=== PATIENT | male | born 1985 | race African-American/Black ===

== ENCOUNTER 2018-05-28 17:43 | Emergency (ER) | payer SELFPAY ==
[2018-05-28 18:19] VITALS: BP 142/88
--- NOTE | 2018-05-28 18:31 | UC ---
Throat Pain/Nasal Miguel HPI - HPI Summary HPI Summary: The patient is a 32-year-old male with a two-week history of nasal congestion postnasal drip and facial pressure as well as pain. Things have dramatically worsened in the past 48 hours. He has had fever chills and his nasal discharge has become brownish green. His upper teeth and gums are sensitive. Both his ears hurt and are popping. He has no chest pain or shortness of breath. He denies any nausea vomiting or diarrhea. - History of Current Complaint Chief Complaint: UCRespiratory Stated Complaint: RN,HOT/COLD CHILLS, HEADACHE Hx Obtained From: Patient Onset/Duration: Gradual Onset, Lasting Weeks Severity: Moderate Pain Intensity: 5 Pain Scale Used: 0-10 Numeric Cough: None Associated Signs & Symptoms: Positive: Sinus Discomfort, Nasal Discharge, Fever - Epiglottits Risk Factors Epiglottis Risk Factors: Negative - Allergies/Home Medications Allergies/Adverse Reactions: Allergies Allergy/AdvReac Type Severity Reaction Status Date / Time eczema Allergy Rash Uncoded 05/28/18 18:19 Home Medications: Home Medications D-Methorphan/PE/Acetaminophen [Vicks Dayquil Cold & Flu] 1 cap PO ONCE PRN 05/28 [History Confirmed 05/28/18] Phenylephrine HCl [Sudafed PE] 10 mg PO BID PRN 05/28/18 [History Confirmed 07/15] PMH/Surg Hx/FS Hx/Imm Hx Previously Healthy: Yes - Surgical History Surgical History: None - Family History Known Family History: Positive: Hypertension, Diabetes Negative: Cardiac Disease - Social History Alcohol Use: Occasionally Substance Use Type: Marijuana Substance Use Comment - Amount & Last Used: yesterday Smoking Status (MU): Heavy Every Day Tobacco Smoker Review of Systems All Other Systems Reviewed And Are Negative: Yes Constitutional: Positive: Fever, Chills, Fatigue Skin: Positive: Negative Eyes: Positive: Negative ENT: Positive: Dental Pain, Sore Throat, Ear Ache, Nasal Discharge, Sinus Congestion, Sinus Pain/Tenderness Respiratory: Positive: Cough Cardiovascular: Positive: Negative Gastrointestinal: Positive: Negative Genitourinary: Positive: Negative Motor: Positive: Negative Neurovascular: Positive: Negative Musculoskeletal: Positive: Negative Neurological: Positive: Headache Psychological: Positive: Negative Physical Exam Triage Information Reviewed: Yes Appearance: Well-Appearing, No Pain Distress, Well-Nourished Vital Signs: Initial Vital Signs Temp 101 F 05/28/18 18:08 Pulse 90 05/28/18 18:08 Resp 18 05/28/18 18:08 BP 142/88 05/28/18 18:08 Pulse Ox 98 05/28/18 18:08 Vital Signs Reviewed: Yes Eyes: Positive: Conjunctiva Clear ENT: Positive: Hearing grossly normal, Pharyngeal erythema, Nasal congestion, Nasal drainage, TM bulging, Sinus tenderness, Uvula midline. Negative: Trismus , Muffled voice, Hoarse voice, Dental tenderness Neck: Positive: Supple, Nontender, No Lymphadenopathy Respiratory: Positive: Lungs clear, Normal breath sounds, No respiratory distress, No accessory muscle use Cardiovascular: Positive: RRR, No Murmur Musculoskeletal: Positive: ROM Intact, No Edema Neurological: Positive: Alert Psychological Exam: Normal Skin Exam: Normal Throat Pain/Nasal Course/Dx - Differential Dx/Diagnosis Provider Diagnosis: Acute sinusitis Discharge - Sign-Out/Discharge Documenting (check all that apply): Patient Departure All imaging exams completed and their final reports reviewed: No Studies - Discharge Plan Condition: Stable Disposition: HOME Prescriptions: Amoxicillin PO (*) [Amoxicillin 875 MG (*)] 875 mg PO BID #20 tab Patient Education Materials: Sinusitis (ED), Warm Compress or Soak (ED) Forms: *Work Release Referrals: No Primary Care Phys,NOPCP [Primary Care Provider] - Additional Instructions: SALINE NASAL SPRAY 2 sprays each nostril two times daily AFRIN nasal spray 2 sprays each nostril 3x day for 3 days only see list for local MDs - Billing Disposition and Condition Condition: STABLE Disposition: Home
== END 2018-05-28 18:39 | disposition home or self-care (01) ==
LOC: UCCORT 17:43
DX: J01.90 Acute sinusitis, unspecified (principal); F17.210 Nicotine dependence, cigarettes, uncomplicated
CPT/HCPCS: 99202; G0463

== ENCOUNTER 2019-04-29 09:11 | Emergency (ER) | payer MEDICAID, OTHER ==
[2019-04-29 09:27] VITALS: BP 134/79
--- NOTE | 2019-04-29 09:36 | UC ---
Back Pain HPI - HPI Summary HPI Summary: 33-year-old female presents with complaints of low back pain. States yesterday he was dancing and twisted during a dance move and had a sudden onset of low back pain which progressively worsened overnight. States pain worsens with any type of moving especially bending. No alleviating factors. Has not taken any [id number] pain medication. Denies fever, chills, urinary symptoms, weakness, numbness, tingling of the lower extremities, loss of bowel or bladder control. - History of Current Complaint Chief Complaint: UCBackPain Stated Complaint: LOWER BACK PAIN Time Seen by Provider: 04/29/19 09:30 Hx Obtained From: Patient Pain Intensity: 5 - Allergies/Home Medications Allergies/Adverse Reactions: Allergies Allergy/AdvReac Type Severity Reaction Status Date / Time eczema Allergy Rash Uncoded 04/29/19 09:27 PMH/Surg Hx/FS Hx/Imm Hx Previously Healthy: Yes - Denies significant PMH - Surgical History Surgical History: None - Family History Known Family History: Positive: Hypertension, Diabetes Negative: Cardiac Disease - Social History Occupation: Employed Full-time Lives: With Family Alcohol Use: Rare Substance Use Type: Marijuana Substance Use Comment - Amount & Last Used: 04/28/19 Smoking Status (MU): Light Every Day Tobacco Smoker Review of Systems All Other Systems Reviewed And Are Negative: Yes Constitutional: Negative: Fever, Chills Skin: Negative: Rash Respiratory: Positive: Negative Cardiovascular: Positive: Negative Gastrointestinal: Positive: Negative Genitourinary: Positive: Negative Musculoskeletal: Positive: Other: - See HPI Neurological: Negative: Weakness, Paresthesia, Numbness Is Patient Immunocompromised?: No Physical Exam - Summary Physical Exam Summary: GENERAL APPEARANCE: Well developed, well nourished, alert and cooperative, and appears to be in no acute distress. CARDIAC: Normal S1 and S2. No S3, S4 or murmurs. Rhythm is regular. There is no peripheral edema, cyanosis or pallor. Extremities are warm and well perfused. Capillary refill is less than 2 seconds. Peripheral pulses intact. LUNGS: Clear to auscultation without rales, rhonchi, wheezing or diminished breath sounds. ABDOMEN: Positive bowel sounds. Soft, nondistended, nontender. No guarding or rebound. No masses or hepatosplenomegally. MUSKULOSKELETAL: ROM intact to all extremities. No joint erythema or tenderness. Normal muscular development. Normal gait. BACK: Examination of the spine reveals no midline spinal deformity or tenderness. Mild bilateral paraspinous soft tissue tenderness of the lumbar spine with spasm. SKIN: Skin normal color, texture and turgor with no lesions or eruptions. Triage Information Reviewed: Yes Vital Signs: Initial Vital Signs Temp 98.6 F 04/29/19 09:22 Pulse 76 04/29/19 09:22 Resp 18 04/29/19 09:22 BP 134/79 04/29/19 09:22 Pulse Ox 100 04/29/19 09:22 Vital Signs Reviewed: Yes Back Pain Course/Dx - Course Course Of Treatment: 33-year-old female presents with complaints of low back pain. States yesterday he was dancing and twisted during a dance move and had a sudden onset of low back pain which progressively worsened overnight. States pain worsens with any type of moving especially bending. No alleviating factors. Has not taken any [id number] pain medication. Denies fever, chills, urinary symptoms, weakness, numbness, tingling of the lower extremities, loss of bowel or bladder control. Afebrile. Vital signs stable. Patient had no midline spinal deformity or tenderness, mild bilateral paraspinous soft tissue tenderness of the lumbar spine with spasm, and otherwise unremarkable exam. Recommending conservative treatment for an acute low back pain including naproxen 500 mg twice a day for the next 3-5 days then every 12 hours as needed, cyclobenzaprine 10 mg 1 tablet every 8 hours as needed for severe pain or spasm , and heat therapy. He is to return here or follow up with his primary care provider in 3-5 days if symptoms are not improving. Anticipatory guidance and warning symptoms reviewed with the patient. Verbalizes understanding and agrees with plan of care. - Differential Dx/Diagnosis Differential Diagnosis/HQI/PQRI: Cauda Equina Syndrome, Herniated Disc, Strain Provider Diagnosis: Acute low back pain Discharge ED - Sign-Out/Discharge Documenting (check all that apply): Patient Departure All imaging exams completed and their final reports reviewed: No Studies - Discharge Plan Condition: Stable Disposition: HOME Prescriptions: Cyclobenzaprine HCl 10 mg PO Q8HR #15 tablet Naproxen [Naproxen 500 mg tab] 500 mg PO BID #30 tablet Patient Education Materials: Acute Low Back Pain (ED), Lower Back Exercises (ED ) Forms: *Work Release Referrals: No Primary Care Phys,NOPCP [Primary Care Provider] - Additional Instructions: Take naproxen 500 mg every 12 hours with food for the next 3-5 days and then may take every 12 hours as needed. Used cyclobenzaprine 10 mg 1 tablet every 8 hours as needed for severe pain or spasm. This medication will cause drowsiness so do not take and drive or operate machinery. Use a heating pad to the effected area for 15-20 minutes at least 4 times a day to help with the pain and to relax the muscles. Return here or follow-up with your primary care provider in 3-5 days if symptoms are not improving. Seek immediate medical attention in the emergency room if you develop a fever greater than 100.5 F, has severe pain that is not managed with your pain medications, develop numbness, tingling, or weakness in her lower extremities, your family, you lose control of her bowel or bladder, or have any worsening of symptoms. - Billing Disposition and Condition Condition: STABLE Disposition: Home
== END 2019-04-29 09:49 | disposition home or self-care (01) ==
LOC: UCCORT 09:11
DX: M54.5 Low back pain (principal); F17.290 Nicotine dependence, other tobacco product, uncomplicated; Z91.09 Other allergy status, other than to drugs and biological substances
CPT/HCPCS: 99212; G0463